=== PATIENT | female | born 1955 | race Caucasian/White ===

== ENCOUNTER → 2017-05-15 16:02 | Outpatient (CLI) | payer OTHER | END | disposition home or self-care (01) | LOC: D.MAMMO 11:00 | DX: R92.8 Other abnormal and inconclusive findings on diagnostic imaging of breast (principal) ==

== ENCOUNTER 2019-05-29 05:54 | Day surgery (SDC) | payer MEDICARE ==
[~2019-05-29] VITALS: Ht 149.9 cm; Wt 66.2 kg
--- NOTE | ~2019-05-29 | OP ---
PATIENT NAME: GENET RUVALCABA MEDICAL RECORD: [id number] :53 LOCATION:D.OPS ADMISSION DATE: SURGEON: FABIAN ROA MD DATE OF OPERATION: 05/29/2019 PREOPERATIVE DIAGNOSES: 1. Squamous cell carcinoma of the anus. 2. Tobacco dependence syndrome. 3. Coronary artery disease. 4. Hypercholesterolemia. POSTOPERATIVE DIAGNOSES: 1. Squamous cell carcinoma of the anus. 2. Tobacco dependence syndrome. 3. Coronary artery disease. 5. Hypercholesterolemia. PROCEDURE: 1. Left subclavian vein PowerPort placement. 2. Fluoroscopic interpretation. SURGEON: Fabian Roa MD REPORT OF PROCEDURE: The patient's left chest was prepped and draped in sterile fashion. A needle was used to cannulate the left subclavian vein and a guidewire was advanced with ease. Fluoro was used to note that the wire was in good position in the venous system. A skin incision was made on the left superior lateral chest and a subcutaneous pouch was made over the pectoral fascia. A catheter was tunneled between this pouch and the wire exit site. The port was then sutured to the pectoral fascia using interrupted 3-0 Prolenes times 2. The catheter was cut with a beveled tip at 25 cm. The dilator trocar device was placed over the wire and the wire and dilator were removed. The catheter was advanced through the trocar and the trocar was then removed. The catheter tip was noted to be resting in good position at the right atrial superior vena caval junction. The catheter aspirated nonpulsatile dark blood and flushed easily with heparinized saline. The subcutaneous tissues were reapproximated with interrupted 3-0 Vicryl and the skin was closed with running subcutaneous 5-0 Monocryl. COMPLICATIONS: None. CONDITION: Stable. ANESTHESIA: General endotracheal and local. BLOOD LOSS: Minimal. TRANSINT:[id number] Voice Confirmation ID: [id number] DOCUMENT ID: [id number] OPERATIVE REPORT [id number] LUNAGENET BABCOCK FABIAN ROA MD CC: NANIE LOERA MD [id number] DICTATION DATE: 05/29/19 1007 SEMICONDUCTOR ENGINEER: 05/29/19 1508 [facility] [address] [place] [address]
[~2019-05-29 05:54] MED LIST: ALBUTEROL SULF8.5 GM INH; BAYER CHEWABLE81 MG PO; CARTIA XT120 MG PO; EFFEXOR XR150 MG PO; ESGIC TABLET1 TAB PO; HYDROCODON-ACE1 EAC7 PO; LIPITOR40 MG PO; LISINOPRIL-HCT1 EAC8 PO; RESTORIL15 MG PO; SINGULAIR10 MG PO; XANAX0.5 MG PO
[2019-05-29 06:30] LABS: BASOPHILS 0.2 % (0-2); EOSINOPHILS 2.8 % (0-7); HEMATOCRIT 46.4 % (36.0-48.0); HEMOGLOBIN 15.5 g/dL (12-16); IMMATURE GRANULOCYTES 0.3 % (0-5); LYMPHOCYTES 20.5 % (15-50); MCH 29.1 pg (26.0-34.0); MCHC 33.4 g/dL (31.0-37.0); MCV 87.2 fL (80.0-100.0); MEAN PLATELET VOLUME 9.9 fL (7.4-10.4); MONOCYTES 7.2 % (2-11); PLATELET COUNT 319 10x3/uL (130-400); RBC 5.32 10x6/uL (4.00-5.40); WBC 15.2 10x3/uL (4.8-10.8)
[2019-05-29 06:34] LABS: APTT 28.5 SECONDS (22.8-39.4); INR 1.07 (0.85-1.17); PROTIME 13.8 SECONDS (11.6-15.0)
[2019-05-29 06:43] LABS: CALCIUM 9.1 mg/dL (8.5-10.1); CARBON DIOXIDE 29.7 mmol/L (21.0-32.0); CREATININE - SERUM 1.3 mg/dL (0.6-1.3); POTASSIUM - SERUM 3.7 mmol/L (3.5-5.1)
[2019-05-29 07:25] VITALS: BP 86/60; Ht 149.9 cm; Wt 66.2 kg
[2019-05-29] MEDS ORDERED: HYDROCODON-ACE1 EAC7 PO (10:03)
== END 2019-05-29 11:40 | disposition home or self-care (01) ==
LOC: D.OPS 05:54 → D.PAN 08:30 → D.OPS 08:30
PROVIDERS: Anesthesiology; ATTEND Surgery
DX: C44.520 Squamous cell carcinoma of anal skin (principal); R22.9 Localized swelling, mass and lump, unspecified; I10 Essential (primary) hypertension; E78.5 Hyperlipidemia, unspecified; F17.210 Nicotine dependence, cigarettes, uncomplicated; I25.10 Atherosclerotic heart disease of native coronary artery without angina pectoris; E78.00 Pure hypercholesterolemia, unspecified